=== PATIENT | female | born 2000 | race Caucasian/White ===

== ENCOUNTER 2024-05-10 12:42 | Outpatient (CLI) | payer OTHER | END 2024-05-10 12:43 | disposition home or self-care (01) | LOC: MRI 12:42 | PROVIDERS: ATTEND Otolaryngology Otolaryngic Allergy | DX: J34.89 Other specified disorders of nose and nasal sinuses (principal) | CPT/HCPCS: 70540 ==

== ENCOUNTER 2024-05-17 14:35 | Outpatient (CLI) | payer OTHER | END 2024-05-17 14:36 | disposition home or self-care (01) | LOC: SCSMRI 14:35 | PROVIDERS: ATTEND Otolaryngology Otolaryngic Allergy | DX: J34.89 Other specified disorders of nose and nasal sinuses (principal); R93.89 Abnormal findings on diagnostic imaging of other specified body structures | CPT/HCPCS: 70552 ==